=== PATIENT | female | born 1975 | race Asian ===

== ENCOUNTER 2021-10-29 15:29 | Outpatient (CLI) | payer OTHER ==
[2021-10-29 16:19] LABS: PLATELET COUNT 195 K/uL (152-353)
[2021-10-29 16:35] LABS: POTASSIUM 4.2 mmol/L (3.6-5.2)
== END 2021-10-29 18:59 | disposition home or self-care (01) ==
LOC: LABW 15:29
PROVIDERS: ATTEND Nurse Practitioner Family
DX: I10 Essential (primary) hypertension (principal)
CPT/HCPCS: 36415; 80053; 82553; 84484; 85027; 93005

== ENCOUNTER 2021-11-14 09:28 | Outpatient (CLI) | payer OTHER | END 2021-11-14 20:54 | disposition home or self-care (01) | LOC: US 09:28 | PROVIDERS: ATTEND Nurse Practitioner Family | DX: M79.622 Pain in left upper arm (principal) ==

== ENCOUNTER 2021-12-23 08:33 | Outpatient (CLI) | payer OTHER | END 2021-12-23 19:20 | disposition home or self-care (01) | LOC: NM 08:33 | PROVIDERS: ATTEND Nurse Practitioner Family | DX: Z12.31 Encounter for screening mammogram for malignant neoplasm of breast (principal) | CPT/HCPCS: A9516 ==

== ENCOUNTER 2022-03-28 09:48 | Emergency (ER) | payer OTHER ==
[~2022-03-28] VITALS: Ht 167.6 cm; Wt 113.4 kg
[2022-03-28 10:20] VITALS: BP 159/96; TEMP 98
== END 2022-03-28 13:04 | disposition home or self-care (01) ==
LOC: ED 09:48
DX: S16.1XXA Strain of muscle, fascia and tendon at neck level, initial encounter (principal); V49.40XA Driver injured in collision with unspecified motor vehicles in traffic accident, initial encounter; Y92.89 Other specified places as the place of occurrence of the external cause
CPT/HCPCS: 96372; 99283; J1100; J1885

== ENCOUNTER 2022-04-28 11:10 | Outpatient (CLI) | payer OTHER | END 2022-04-28 19:04 | disposition home or self-care (01) | LOC: RAD 11:10 | PROVIDERS: ATTEND Physician Assistant | DX: M25.512 Pain in left shoulder (principal) ==